=== PATIENT | male | born 1960 | race Native Hawaiian/Other Pacific Islander ===

== ENCOUNTER 2018-01-26 20:37 | Outpatient (CLI) | payer BC | END 2018-01-26 21:02 | disposition short-term general hospital (02) | LOC: AMB 20:37 | DX: R06.02 Shortness of breath (principal); R07.89 Other chest pain | CPT/HCPCS: A0425; A0427 ==

== ENCOUNTER 2020-02-22 15:26 | Inpatient (IN) | payer BC ==
[~2020-02-22] VITALS: Ht 182.9 cm; Wt 120.4 kg
[2020-02-22] VITALS (8 sets, daily range): BP systolic 125–150; BP diastolic 48–73; TEMP 98.3–99.5; Ht 182.9 cm; Wt 120.4 kg
[2020-02-22 16:06] LABS: PLATELET COUNT 242 K/uL (142-355)
[2020-02-22 16:07] LABS: POTASSIUM 4.9 mmol/L (3.6-5.2); SODIUM 137 mmol/L (136-145)
[2020-02-22] MEDS ORDERED: NEURONTIN800 MG PO (19:54)
[2020-02-22] MEDS ORDERED: CLOP75TA2 PO (19:55)
[2020-02-22] MEDS ORDERED: DULOXETINE HYDR60 MG PO (19:58)
[2020-02-22] MEDS ORDERED: NUCYNTA ER100 MG PO (20:00)
[2020-02-22] MEDS ORDERED: HYDR10TA47 PO (20:02)
[2020-02-22] MEDS ORDERED: AMLODIPINE BESYLATE PO (21:17)
--- NOTE | 2020-02-22 23:16 | NUR ---
02/22/20201913: PT ARRIVED TO FLOOR FROM ER BY STRETCHER. PT CONFUSED. UNABLE TO TELL NURSE HIS NAME, PLACE, TIME, OR SITUATION. PT HAD FALL AT HOME AND HAS SOME LESIONS AND ABRASIONS ON FACE AND ARMS.
[2020-02-23 04:02] VITALS: BP 133/52; TEMP 98.8
[2020-02-23 08:00] VITALS: BP 152/68; TEMP 98.2
--- NOTE | 2020-02-23 08:30 | NUR ---
LAB IN TO DRAW BLOOD
--- NOTE | 2020-02-23 08:40 | NUR ---
DR. ROTH IN TO SEE PT AND ASSESS WOUNDS TO RT GREAT TOE AND RT SECOND TOE. BOTH CLOSED, NO DRAINAGE, RT GREAT TOE HAS DISCOLORED AREA, RT SECOND TOE HAS CALLOUSED AREA. NO WOUND CARE ORDERS GIVEN AT THIS TIME.
[2020-02-23 08:57] LABS: POTASSIUM 4.4 mmol/L (3.6-5.2)
--- NOTE | 2020-02-23 09:35 | NUR ---
PT PULLED BOTH IV'S OUT, BOTH FOUND INTACT, LAYING IN THE FLOOR. 20G STARTED TO LFA X 2 STICKS PER EVENT COORDINATOR MARKETING AND SALES. PT POLI FAIR, X2 PERSON ASSIST TO HOLD PT STILL.
--- NOTE | 2020-02-23 09:41 | NUR ---
NOTIFIED DR. ROTH OF PT BEHAVIOR - V/O GIVEN TOADMIN 1MG ATIVAN SIVP.
--- NOTE | 2020-02-23 09:48 | NUR ---
PT C/O GENERALIZED PAIN BUT IS UNABLE TO DESCRIBE OR RATE PAIN. 2MG MORPHINE ADMIN SIVP.
--- NOTE | 2020-02-23 09:50 | NUR ---
PT TO MRI VIA STRETCHER.
[2020-02-23 10:06] LABS: PLATELET COUNT 208 K/uL (142-355)
--- NOTE | 2020-02-23 11:00 | NUR ---
PT BACK FROM MRI, ASSISTED BACK TO BED, TELE 8 PLACED BACK ON PT, SR UP X2, FOR SAFETY, BED LOW, LOCKED WITH ALARM SET. PT RESTING COMFORTABLY ON RT SIDE.
[2020-02-23 12:00] VITALS: BP 131/60; TEMP 97.8
--- NOTE | 2020-02-23 13:54 | NUR ---
BED ALARM SOUNDED, ENTERED ROOM TO FIND PT SITTING ON THE FOOT OF THE BED NUDE, SITTING IN LARGE, BROWN BOWEL MOVEMENT, STOOL IN THE FLOOR, ON THE SIDE OF THE BED, AND IN THE BED. VERY DIFFICULT TO GET PT TO FOLLOW DIRECTIONS, OR TO ACKNOWLEDGE STAFF DIRECTIONS. PT YELLED AT HALAL BUTCHER AND BECAME AGITATED BUT STILL WOULD NOT FOLLOW DIRECTIONS. X 2 ASSIST REQUIRED TO GET PT BATHED, PERICARE, AND LINENS CHANGED. 1MG ATIVAN ADMIN SIVP FOR AGITATION.
[2020-02-23 16:00] VITALS: BP 188/88; TEMP 97.9
--- NOTE | 2020-02-23 17:38 | NUR ---
IVPB VANC SPIKED. NEXT TROUGH DUE 02/23 AT 1700 PER CYNTHIA IN [facility]ARM.
--- NOTE | 2020-02-23 17:38 | NUR ---
SET UP TRAY FOR PT, CUT UP MEAT, PT ACCEPTS A FEW BITE OF MEAT BUT REFUSES THE REST.
--- NOTE | 2020-02-23 18:07 | NUR ---
PT'S DAUGHTER MARBIN CALLED REQUESTING INFORMATION ABOUT MRI RESULTS. RN ASSESSMENT ASKED DR. ROTH - DR. ROTH HASN'T HAD THE OPPORTUNITY TO REVIEW RESULTS YET BUT IS AWARE THE MRI IS RESULTED.
--- NOTE | 2020-02-23 18:42 | NUR ---
SPOKE TO PTS DAUGHTER MARBIN AGAIN WITH MRI UPDATE GIVEN BY DR. ROTH.
[2020-02-23 20:04] VITALS: BP 142/54; TEMP 98.3
[2020-02-24 00:05] VITALS: BP 121/87; TEMP 98.9
[2020-02-24 03:56] VITALS: BP 136/65; TEMP 98.6
[2020-02-24 04:37] LABS: POTASSIUM 4.2 mmol/L (3.6-5.2)
[2020-02-24 04:55] LABS: PLATELET COUNT 206 K/uL (142-355)
--- NOTE | 2020-02-24 05:30 | NUR ---
PT PULLED IV OUT, PT BECAME AGITATED UPON ATTEMPTING TO RESTART IV, AND STATED NO!, YOU NOT DO THAT.
--- NOTE | 2020-02-24 06:33 | NUR ---
PT WITH INCREASED ANXIETY THIS SHIFT , REFUSES IV TO BE RESTARTED, BOWED UP AT STAFF, ATTEMPTED TO HIT STAFF X2 THIS SHIFT, GETS UP OUT OF BED , GOES TO BATHROOM WITH F/C INTACT.
[2020-02-24 08:00] VITALS: BP 158/41; TEMP 98.3
--- NOTE | 2020-02-24 09:00 | NUR ---
PT UP TO BATHROOM PER SELF FOR BM. PT MORE COGNIZANT THIS AM, WILL FOLLOW DIRECTIONS AND ANSWER QUESTIONS. PT ALLOWS IV TO BE PLACED IN RAC 20G X1 STICK.
--- NOTE | 2020-02-24 10:46 | NUR ---
1MG ATIVAN ADMIN SIVP.
[2020-02-24 12:00] VITALS: BP 174/81; TEMP 99
--- NOTE | 2020-02-24 13:47 | NUR ---
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 SHE STATES HE "FIGHTS IN HIS SLEEP" AND WILL ACT OUT WHILE SLEEPING. SHE ALSO REPORTS THAT HE WAS PART OF A "SORT TEAM" AND IS USED TO BEING AUTHORITATIVE AND GRUFF IN MANNER. SHE STATES HE CAN "BE MEAN AT TIMES". [phone]
--- NOTE | 2020-02-24 14:58 | NUR ---
ATTEMPTED TO CALL DAUGHTER MARBIN BACK AT [phone]- BOTH TIMES LINE WAS BUSY.
--- NOTE | 2020-02-24 15:47 | NUR ---
PT NOTED TO BE AGITATED- 1MG ATIVAN ADMIN SIVP.. PT ALSO C/O PAIN. HYDROCODONE ADMIN PO.
[2020-02-24 16:00] VITALS: BP 162/77; TEMP 98.3
--- NOTE | 2020-02-24 18:20 | NUR ---
NOTIFIED DR. ROTH THAT PT'S FAMILY REPORTED THAT HE WAS 2.5PK /DAY SMOKER- NICOTINE PATCH ORDERED.
--- NOTE | 2020-02-24 18:24 | NUR ---
PT RESTING COMFORTABLY IN BED. NAD NOTED AT THIS TIME.
[2020-02-24 19:36] VITALS: BP 147/75; TEMP 98.1
[2020-02-25] VITALS (7 sets, daily range): BP systolic 153–172; BP diastolic 78–101; TEMP 97.8–98.6
[2020-02-25 05:38] LABS: POTASSIUM 4.1 mmol/L (3.6-5.2)
[2020-02-25 05:50] LABS: PLATELET COUNT 204 K/uL (142-355)
--- NOTE | 2020-02-25 12:13 | NUR ---
REACHED OUT TO PT'S DAUGHTER MARBIN TO GIVE HER UPDATE. ADVISED HER THAT PT WAS EXPRESSING DESIRE TO BE D/C. PER DR. ROTH, HE WAS HOPING TO KEEP PT A FEW MORE DAYS TO ALLOW HIM TO BENEFIT FROM PHYSICAL THERAPY SERVICES. FAMILY HAS EXPRESSED WISHES TO "KNOCK HIM OUT SO HE WILL STAY" , DR. ROTH ADVISED OF THIS WELL. ALSO ADVISED MARBIN THAT PT WAS RECEIVING EVERYTHING THAT PT WAS RX. MARBIN STATES THAT PT HAS BEEN CALLING FAMILY MEMBERS AND TRYING TO GET THEM TO COME GET HIM FROM THE HOSPITAL. STATIONS SUPERINTENDENT ADVISED MARBIN THAT STAFF WAS UNABLE TO GIVE [place] [facility] ANY INFORMATION ON 02/23 BC SHE DIDN'T HAVE PIN CODE. PER MARBIN, ALL FAMILY, INCLUDING [place], HAS BEEN ADVISED TO GO THROUGH MARBIN FOR UPDATES TO LESSEN NUMBER OF PHONE CALLS TO HOSPITAL STAFF. ALSO, PER MARBIN, IF PT IS ADAMANT TO BE RELEASED, HER SISTER AUSTIN IS AVAILABLE TO PICK HIM UP AND TAKE HIM HOME. [place] HERCULES CAN BE REACHED AT [phone].
--- NOTE | 2020-02-25 12:30 | NUR ---
UPDATED DR. ROTH ON FAMILY REQUEST AND PT REQUEST FOR INCREASED SEDATION, V/O GIVEN FOR 1MG ATIVAN NOW.
--- NOTE | 2020-02-25 12:36 | NUR ---
SPOKE WITH PT ABOUT STAYING AT LEAST UNTIL MON OR TU TO GET PT. PT STATES "IF ERIN GIVE ME MY PAIN MEDS AND KEEP ME COMFORTABLE, I WILL STAY UNTIL TOMORROW." PT ALSO STATES, "ERIN BETTER CALL A[place]IN AND TELL HER NEVERMIND ABOUT COMING TO GET ME. I CALLED HER AND TOLD HER TO COME GET ME BC I WAS GOING TO CRAWL OUT THE WINDOW AND LEAVE." ARCHITECTURAL JOB CAPTAIN CALLED DAUGHTER AUSTIN AND RELAYED MESSAGE FROM PT, ALSO GAVE UPDATE TO [place] SINCE MARBIN HAD GIVEN PHONE NUMBER. A[place]IN STATED THAT NO ONE IN HER FAMILY HAD BEEN GIVING HER INFORMATON. ARCHITECTURAL JOB CAPTAIN RELAYED MESSAGE THAT MARBIN HAD BEEN PRIMARY CONTACT AND WAS RELAYING INFO TO OTHER FAMILY MEMBERS.
--- NOTE | 2020-02-25 12:54 | NUR ---
CHRISTOPHER RAMAN- (AQUAINTANCE OF THE PT'S DAUGHTER [place] HERCULES) STATES THAT [place] REACHED OUT TO HER VIA FB STATING SHE WAS HAVING A HARD TIME GETTING UPDATES FROM HOSPITAL STAFF. CHRISTOPHER WAS ADVISED THAT PROACTIVE CALL WAS JUST MADE TO [facility] AT [phone] AND SHE WAS GIVEN UPDATE.
--- NOTE | 2020-02-25 18:48 | NUR ---
PT UP OUT OF BED, STATES HE HAS TO GO TO THE TOILET, REFUSES BSC, IS SLIGHTLY UNSTEADY. BEHAVIOR IS SUSPICIOUS OF STAFF INITIALLY THEN RELAXED AFTER REORIENTING PT TO SITUATION. PT STATES HE "THOUGHT STAFF WAS MAD AT HIM BC SHE WAS IN AND OUT QUICK." ENT NURSE ASSURED PT THAT WE WERE NOT MAD AT HIM AND THAT WE WERE ONLY PASSING OUT DINNER TRAYS AND MEDS. PT STATED HE DIDN'T HAVE TO USE THE BATHROOM AND THAT HE WAS ONLY "BULLSHITTING" BECAUSE HE THOUGHT WE WERE MAD AT HIM.
[2020-02-26 04:00] VITALS: BP 186/55; TEMP 98.4
[2020-02-26 05:53] LABS: PLATELET COUNT 232 K/uL (142-355)
[2020-02-26 08:00] VITALS: BP 146/89; TEMP 98.6
[2020-02-26 12:00] VITALS: BP 147/92; TEMP 97.9
--- NOTE | 2020-02-26 16:16 | NUR ---
PT HAS A FOLLOW UP APPOINTMENT WITH HIS PCP DR. DORIS COHEN IN [place] FOR 05/02/20 @ 9:45AM FOR PAIN MANAGEMENT [phone].
== END 2020-02-26 12:20 | disposition left against medical advice (07) | DRG 593 ==
LOC: ED 15:35 → MED/SURG 17:00
PROVIDERS: Internal Medicine Endocrinology, Diabetes & Metabolism; ADMIT Hospitalist
DX: L89.892 Pressure ulcer of other site, stage 2 (principal); J44.1 Chronic obstructive pulmonary disease with (acute) exacerbation; N30.00 Acute cystitis without hematuria; R41.82 Altered mental status, unspecified; E11.40 Type 2 diabetes mellitus with diabetic neuropathy, unspecified; Z91.81 History of falling; I10 Essential (primary) hypertension; E11.9 Type 2 diabetes mellitus without complications; G89.4 Chronic pain syndrome; E86.0 Dehydration
CPT/HCPCS: 36415; 36600; 51702; 80048; 80053; 80320; 81000; 82550; 82805; 82948; 83605; 83880; 84484; 85007; 85027; 85610; 85730; 87040; 87502; 87635; 87651; 93005; 96361; 96365; 96366; 96367; 96372; 96374; 96375; 99220; 99284; G0378; J1650; J1815; J1956; J2060; J2270; J2405; J2930; J3370; U0003

== ENCOUNTER 2020-04-10 12:48 | Emergency (ER) | payer BC ==
[~2020-04-10] VITALS: Ht 182.9 cm; Wt 120.2 kg
[~2020-04-10 12:48] MED LIST: AMLODIPINE BESYLATE PO; CLOP75TA2 PO; DULOXETINE HYDR60 MG PO; HYDR10TA47 PO; NEURONTIN800 MG PO; NUCYNTA ER100 MG PO
[2020-04-10 12:59] VITALS: TEMP 99.6
[2020-04-10 13:09] LABS: PLATELET COUNT 231 K/uL (142-355)
[2020-04-10 13:17] LABS: POTASSIUM 3.6 mmol/L (3.6-5.2); SODIUM 134 mmol/L (136-145)
[2020-04-10 13:29] LABS: PARTIAL THROMBOPLASTIN TIME 29.6 SECONDS (24.5-33.6)
[2020-04-10 14:24] VITALS: BP 116/59
== END 2020-04-10 15:13 | disposition short-term general hospital (02) ==
LOC: ED 12:48
PROVIDERS: Emergency Medicine
DX: I63.9 Cerebral infarction, unspecified (principal); R47.01 Aphasia; F17.210 Nicotine dependence, cigarettes, uncomplicated
CPT/HCPCS: 80053; 82550; 82553; 84484; 85027; 85610; 85730; 93005; 96374; 99285; J2310